=== PATIENT | female | born 1980 | race Caucasian/White ===

== ENCOUNTER 2017-10-05 22:17 | Emergency (ER) | payer OTHER ==
--- NOTE | 2017-10-05 22:39 | ED ---
General Adult HPI - General Chief complaint: Neck Pain/Injury Stated complaint: Flank pain Time Seen by Provider: 10/05/17 22:26 Source: patient, RN notes reviewed Mode of arrival: ambulatory Limitations: no limitations - History of Present Illness Initial comments: This is a 37-year-old female who presents to the emergency department with chief complaint of right flank pain. Patient states that yesterday she developed a fever of 103.6. She states that she presented via EMS to [facility] and was admitted for a urinary tract infection. She states that she left AMA today at around noon because she "doesn't like the hospital." She states that since then she has not developed another fever. She does admit to diarrhea but denies nausea or vomiting. She denies any significant abdominal pain. She complains of right flank pain that radiates to the right abdomen. Patient also complains of neck pain. Patient does state that her pain has improved since yesterday. Patient also complains of discoloration to her bilateral lower extremities, hands and upper arms. - Related Data Home Medications Medication Instructions Recorded Confirmed No Known Home Medications 09/24/15 09/24/15 Allergies Allergy/AdvReac Type Severity Reaction Status Date / Time morphine Allergy Unknown Verified 10/05/17 22:26 Review of Systems ROS Statement: Those systems with pertinent positive or pertinent negative responses have been documented in the HPI. ROS Other: All systems not noted in ROS Statement are negative. Past Medical History Past Medical History: No Reported History History of Any Multi-Drug Resistant Organisms: None Reported Past Surgical History: Section Past Psychological History: Anxiety, Depression, PTSD Smoking Status: Current every day smoker Past Alcohol Use History: Daily, Heavy Past Drug Use History: None Reported General Exam - General Exam Comments Initial Comments: General: Awake and alert, well-developed; in no apparent distress. HEENT: Head atraumatic, normocephalic. Pupils are equal, round and reactive to light. Extraocular movements intact. Oropharynx moist without erythema or exudate. Neck: Supple. Normal ROM. Cardiovascular: Regular rate and rhythm. No murmurs, rubs or gallops. Chest symmetrical. Respiratory: Lungs clear to auscultation bilaterally. No wheezes, rales or rhonchi. Normal respiratory effort with no use of accessory muscles. Abdomen: Soft, non-tender, non-distended. No rigidity, rebound or guarding. Normal bowel sounds in all 4 quadrants. Right CVA tenderness. Musculoskeletal: Normal ROM, no tenderness bilateral upper and lower extremities. Ambulating normally. Skin: [place], warm and dry. Mottled purple discoloration noted to bilateral knees and lateral left upper arm. Neurological: Alert and oriented x3. CN II-XII grossly intact. Speech is fluent and answers are appropriate. No focal neuro deficits. Psychiatric: Normal mood and affect. No overt signs of depression or anxiety noted. Limitations: no limitations Course Vital Signs 10/05/17 10/06/17 22:22 00:32 Temperature 98.6 F 99.0 F Pulse Rate 117 H 90 Respiratory 16 18 Rate Blood Pressure 140/89 120/71 O2 Sat by Pulse 97 98 Oximetry Medical Decision Making - Medical Decision Making This is a 37-year-old female who presents to the emergency department with chief complaint of right-sided flank pain. Patient states that she was admitted for a urinary tract infection and left AMA yesterday. CBC revealed a white count at 18,000 with a left shift. CMP revealed elevated transaminases, however patient does state that she has alcoholic. UA was essentially unremarkable. I tried multiple times to obtain records from [facility] pertaining to patient's stay. Patient did state that she had a computed tomography scan performed but is unable to remember the results. Case was discussed with attending physician, Dr. Schwab. Patient will be admitted with diagnosis of fever for IV antibiotics. Patient is in agreement for admission. Vital signs are stable and she is in no acute distress. - Lab Data Result diagrams: 10/05/17 23:10 10/05/17 23:10 Lab Results 10/05/17 10/05/17 10/05/17 Range/Units 22:45 22:45 23:10 WBC 18.1 H (3.8-10.6) k/uL RBC 3.87 (3.80-5.40) m/uL Hgb 11.1 L (11.4-16.0) gm/dL Hct 34.2 (34.0-46.0) % MCV 88.3 (80.0-100.0) fL MCH 28.6 (25.0-35.0) pg MCHC 32.4 (31.0-37.0) g/dL RDW 13.1 (11.5-15.5) % Plt Count 501 H (150-450) k/uL Neutrophils % 82 % Lymphocytes % 12 % Monocytes % 5 % Eosinophils % 0 % Basophils % 0 % Neutrophils # 14.8 H (1.3-7.7) k/uL Lymphocytes # 2.2 (1.0-4.8) k/uL Monocytes # 0.9 (0-1.0) k/uL Eosinophils # 0.1 (0-0.7) k/uL Basophils # 0.0 (0-0.2) k/uL Sodium (137-145) mmol/L Potassium (3.5-5.1) mmol/L Chloride (98-107) mmol/L Carbon Dioxide (22-30) mmol/L Anion Gap mmol/L BUN (7-17) mg/dL Creatinine (0.52-1.04) mg/dL Est GFR (CKD-EPI)AfAm (>60 ml/min/1.73 sqM) Est GFR (CKD-EPI)NonAf (>60 ml/min/1.73 sqM) Glucose (74-99) mg/dL Calcium (8.4-10.2) mg/dL Total Bilirubin (0.2-1.3) mg/dL AST (14-36) U/L ALT (9-52) U/L Alkaline Phosphatase (38-126) U/L Total Protein (6.3-8.2) g/dL Albumin (3.5-5.0) g/dL Urine Color Yellow Urine Appearance Clear (Clear) Urine pH 5.5 (5.0-8.0) Ur Specific [place] 1.011 (1.001-1.035) Urine Protein Negative (Negative) Urine Glucose (UA) Negative (Negative) Urine Ketones Negative (Negative) Urine Blood Small H (Negative) Urine Nitrite Negative (Negative) Urine Bilirubin Negative (Negative) Urine Urobilinogen <2.0 (<2.0) mg/dL Ur Leukocyte Esterase Trace H (Negative) Urine RBC 4 (0-5) /hpf Urine WBC 6 H (0-5) /hpf Ur Squamous Epith Cells 3 (0-4) /hpf Urine Mucus Rare H (None) /hpf Urine HCG, Qual Not Detected (Not Detectd) 10/05/17 Range/Units 23:10 WBC (3.8-10.6) k/uL RBC (3.80-5.40) m/uL Hgb (11.4-16.0) gm/dL Hct (34.0-46.0) % MCV (80.0-100.0) fL MCH (25.0-35.0) pg MCHC (31.0-37.0) g/dL RDW (11.5-15.5) % Plt Count (150-450) k/uL Neutrophils % % Lymphocytes % % Monocytes % % Eosinophils % % Basophils % % Neutrophils # (1.3-7.7) k/uL Lymphocytes # (1.0-4.8) k/uL Monocytes # (0-1.0) k/uL Eosinophils # (0-0.7) k/uL Basophils # (0-0.2) k/uL Sodium 142 (137-145) mmol/L Potassium 4.2 (3.5-5.1) mmol/L Chloride 105 (98-107) mmol/L Carbon Dioxide 24 (22-30) mmol/L Anion Gap 13 mmol/L BUN 9 (7-17) mg/dL Creatinine 0.70 (0.52-1.04) mg/dL Est GFR (CKD-EPI)AfAm >90 (>60 ml/min/1.73 sqM) Est GFR (CKD-EPI)NonAf >90 (>60 ml/min/1.73 sqM) Glucose 107 H (74-99) mg/dL Calcium 9.2 (8.4-10.2) mg/dL Total Bilirubin 0.3 (0.2-1.3) mg/dL AST 81 H (14-36) U/L ALT 186 H (9-52) U/L Alkaline Phosphatase 102 (38-126) U/L Total Protein 5.8 L (6.3-8.2) g/dL Albumin 3.3 L (3.5-5.0) g/dL Urine Color Urine Appearance (Clear) Urine pH (5.0-8.0) Ur Specific [place] (1.001-1.035) Urine Protein (Negative) Urine Glucose (UA) (Negative) Urine Ketones (Negative) Urine Blood (Negative) Urine Nitrite (Negative) Urine Bilirubin (Negative) Urine Urobilinogen (<2.0) mg/dL Ur Leukocyte Esterase (Negative) Urine RBC (0-5) /hpf Urine WBC (0-5) /hpf Ur Squamous Epith Cells (0-4) /hpf Urine Mucus (None) /hpf Urine HCG, Qual (Not Detectd) Disposition Clinical Impression: Fever, Leukocytosis Disposition: ADMITTED IP TO THIS HOSP Condition: Stable Is patient prescribed a controlled substance at d/c from ED?: No Referrals: Alejandro Bender MD [Primary Care Provider] - 1-2 days Time of Disposition: 02:46
[2017-10-05 23:26] LABS: Appearance,Urine Clear (Clear); Bilirubin,Urine Negative (Negative); Blood,Urine Small (Negative); Color,Urine Yellow; Glucose,Urine (UA) Negative (Negative); Ketones,Urine Negative (Negative); Leukocyte Esterase,Urine Trace (Negative); Mucus,Urine Rare /hpf; Nitrite,Urine Negative (Negative); PH, Urine 5.5 (5.0-8.0); Protein,Urine Negative (Negative); RBC,Urine 4 /hpf (0-5); Specific Gravity,Urine 1.011 (1.001-1.035); Squamous Epithelial Cell,Urine 3 /hpf (0-4); Urobilinogen,Urine <2.0 mg/dL (<2.0); WBC,Urine 6 /hpf (0-5)
[2017-10-05 23:28] LABS: Basophils % (A) 0 %; Eosinophils # (A) 0.1 k/uL (0-0.7); Eosinophils % (A) 0 %; HCT 34.2 % (34.0-46.0); HGB 11.1 gm/dL (11.4-16.0); Lymphocytes # (A) 2.2 k/uL (1.0-4.8); Lymphocytes % (A) 12 %; MCH 28.6 pg (25.0-35.0); MCHC 32.4 g/dL (31.0-37.0); MCV 88.3 fL (80.0-100.0); Mean Platelet Volume 7.2; Monocytes # (A) 0.9 k/uL (0-1.0); Monocytes % (A) 5 %; Neutrophils # (A) 14.8 k/uL (1.3-7.7); Neutrophils % (A) 82 %; Platelet Count 501 k/uL (150-450); RBC 3.87 m/uL (3.80-5.40); RDW 13.1 % (11.5-15.5); WBC 18.1 k/uL (3.8-10.6)
[2017-10-05 23:45] LABS: ALT 186 U/L (9-52); AST 81 U/L (14-36); Albumin 3.3 g/dL (3.5-5.0); Alkaline Phosphatase 102 U/L (38-126); Anion Gap 13 mmol/L; Blood Urea Nitrogen 9 mg/dL (7-17); Calcium 9.2 mg/dL (8.4-10.2); Carbon Dioxide 24 mmol/L (22-30); Chloride 105 mmol/L (98-107); Glucose 107 mg/dL (74-99); Sodium 142 mmol/L (137-145); Total Bilirubin 0.3 mg/dL (0.2-1.3); Total Protein 5.8 g/dL (6.3-8.2)
[2017-10-05 23:47] LABS: Potassium 4.2 mmol/L (3.5-5.1)
[2017-10-06 00:35] VITALS: BP 120/71; PULSE 90; RESP 18; TEMP 99
[2017-10-06] MEDS ORDERED: ONDANSETRON 4 MG/2 ML VIAL IVP PRN (02:47)
[2017-10-06] MEDS ORDERED: IBUPROFEN 400 MG TAB PO PRN (02:47)
[2017-10-06] MEDS ORDERED: KETOROLAC 30 MG/ML 1 ML VIAL IVP PRN (02:47)
[2017-10-06] MEDS ORDERED: SODIUM CHLORIDE 0.9% 1,000 ML IV SCH (03:00)
[2017-10-06] MEDS ORDERED: cefTRIAXone IN SWFI 1,000 MG/10 ML SYRINGE IVP SCH (03:00)
== END 2017-10-06 04:17 | disposition left against medical advice (07) ==
LOC: EC 22:17
DX: D72.829 Elevated white blood cell count, unspecified (principal); M54.2 Cervicalgia; F17.200 Nicotine dependence, unspecified, uncomplicated; Z88.5 Allergy status to narcotic agent
CPT/HCPCS: 99283; 96374; 36415; 80053; 85025; 81001; 81025; J0696

== ENCOUNTER 2018-01-20 23:08 | Emergency (ER) | payer OTHER ==
[2018-01-20 23:15] VITALS: TEMP 98.3
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
[2018-01-21] MEDS ORDERED: NICOTINE 14MG/24HR PATCH TRANSDERM STA (00:26)
[2018-01-21] MEDS ORDERED: LORazepam 1 MG TAB PO STA (00:26)
[2018-01-21 01:07] VITALS: BP 117/64; PULSE 99; RESP 16
[2018-01-21 01:48] LABS: Amphetamine Screen,Urine Detected (NotDetected); Barbiturate Screen,Urine Not Detected (NotDetected); Benzodiazepines Screen,Urine Not Detected (NotDetected); Cocaine Screen,Urine Not Detected (NotDetected); Methadone Screen, Urine Not Detected (NotDetected); Opiate Screen,Urine Not Detected (NotDetected); Oxycodone Screen, Urine Not Detected (NotDetected); Phencyclidine Screen,Urine Not Detected (NotDetected); Tricyclic Antidepressant,Urine Not Detected (NotDetected); Urn Cannabinoid Scrn Not Detected (NotDetected)
== END 2018-01-21 02:04 | disposition home or self-care (01) ==
LOC: EC 23:08
DX: F41.9 Anxiety disorder, unspecified (principal); F17.200 Nicotine dependence, unspecified, uncomplicated; Z79.899 Other long term (current) drug therapy; Z88.5 Allergy status to narcotic agent
CPT/HCPCS: 80306; 99284

== ENCOUNTER 2019-04-05 22:32 | Emergency (ER) | payer OTHER ==
[2019-04-05 22:38] VITALS: TEMP 98.3
[2019-04-05] MEDS ORDERED: MECLIZINE 12.5 MG TAB PO STA (22:57)
[2019-04-05] MEDS ORDERED: ONDANSETRON ODT 4 MG TAB PO STA (22:57)
--- NOTE | 2019-04-05 23:07 | ED ---
Dizziness HPI - General Chief Complaint: Dizziness Stated Complaint: Dizziness Time Seen by Provider: 04/05/19 22:41 Source: patient, RN notes reviewed, old records reviewed Mode of arrival: ambulatory Limitations: no limitations - History of Present Illness Initial Comments: This is a 31-year-old female DF for evaluation patient is safe for evaluation regards to dizziness lightheadedness left arm numbness and tingling left leg numbness and tingling. Patient is concerned that she has MS her dad has MS. Symptoms for 2 weeks now. No aggravating or improving factors. No fevers or trauma. Patient suffers from sciatica symptoms do feel similar to that maybe a little bit increased. No other recent change in medications denying drug or alcohol abuse. Again patient has increased stress and anxiety in her life. MD Complaint: dizziness, lightheadedness -: days(s) Timing: gradual onset Description: sense of movement, lightheadedness History of Same: Yes History of Trauma: Yes Severity: moderate Improves With: rehydration Worsens With: nothing Associated Symptoms: loss of appetite, malaise, syncope, weakness - Related Data Home Medications Medication Instructions Recorded Confirmed Calcium Carb/Magnesium Ox,Carb 1 tab PO DAILY 01/20/18 01/20/18 [Telly-Mag 500-250 MG Chewable] Cyanocobalamin (Vitamin B-12) 1,000 mcg PO DAILY 01/20/18 01/20/18 [Vitamin B-12] Gabapentin [Neurontin] 300 mg PO BID@0630,1200 01/20/18 01/20/18 Gabapentin [Neurontin] 600 mg PO HS 01/20/18 01/20/18 Ibuprofen 800 mg PO TID PRN 01/20/18 01/20/18 Multivitamins, Thera [Multivitamin 1 tab PO DAILY 01/20/18 01/20/18 (formulary)] Phentermine HCl [Adipex P] 30 mg PO DAILY 01/20/18 01/20/18 hydrOXYzine PAMOATE [Vistaril] 50 mg PO Q8H PRN 01/20/18 01/20/18 Allergies Allergy/AdvReac Type Severity Reaction Status Date / Time morphine Allergy Swelling Verified 04/05/19 22:38 Review of Systems ROS Statement: Those systems with pertinent positive or pertinent negative responses have been documented in the HPI. ROS Other: All systems not noted in ROS Statement are negative. Past Medical History Past Medical History: No Reported History History of Any Multi-Drug Resistant Organisms: None Reported Past Surgical History: Section Past Psychological History: Anxiety, Depression, PTSD Smoking Status: Current every day smoker Past Alcohol Use History: Daily, Heavy Past Drug Use History: Methamphetamine General Exam Limitations: no limitations General appearance: alert, in no apparent distress, anxious Head exam: Present: atraumatic, normocephalic, normal inspection Eye exam: Present: normal appearance, PERRL, EOMI. Absent: scleral icterus, conjunctival injection, periorbital swelling ENT exam: Present: normal exam, mucous membranes moist Neck exam: Present: normal inspection. Absent: tenderness, meningismus, lymphadenopathy Respiratory exam: Present: normal lung sounds bilaterally. Absent: respiratory distress, wheezes, rales, rhonchi, stridor Cardiovascular Exam: Present: tachycardia, normal heart sounds. Absent: systolic murmur, diastolic murmur, rubs, gallop, clicks GI/Abdominal exam: Present: soft, normal bowel sounds. Absent: distended, tenderness, guarding, rebound, rigid Extremities exam: Present: normal inspection, full ROM, normal capillary refill. Absent: tenderness, pedal edema, joint swelling, calf tenderness Back exam: Present: normal inspection Neurological exam: Present: alert, oriented X3, CN II-XII intact Psychiatric exam: Present: normal affect, normal mood Skin exam: Present: warm, dry, intact, normal color. Absent: rash Course Vital Signs 04/05/19 22:35 Temperature 98.3 F Pulse Rate 101 H Respiratory 20 Rate Blood Pressure 120/80 O2 Sat by Pulse 100 Oximetry - Reevaluation(s) Reevaluation #1: 04/06/19 00:04 Medical record is reviewed Reevaluation #2: 04/06/19 00:04 Patient symptoms are improved here in the ER for a computed tomography scan to questions are answered EKG Findings - EKG Comments: EKG Findings:: EKG shows sinus tachycardia rate of 103, SC 122,QRS 82 and QTc 432 Medical Decision Making - Medical Decision Making 39 femaleto the ER for evaluation patient presents today for evaluation regarding paresthesia type symptoms numbness tingling of arms left on left leg and anxiety - Lab Data Lab Results 04/05/19 04/05/19 04/05/19 Range/Units 23:25 23:25 23:25 Urine Color Light Yellow Urine Appearance Cloudy H (Clear) Urine pH 6.5 (5.0-8.0) Ur Specific [place] 1.017 (1.001-1.035) Urine Protein Negative (Negative) Urine Glucose (UA) Negative (Negative) Urine Ketones Negative (Negative) Urine Blood Small H (Negative) Urine Nitrite Negative (Negative) Urine Bilirubin Negative (Negative) Urine Urobilinogen <2.0 (<2.0) mg/dL Ur Leukocyte Esterase Negative (Negative) Urine RBC 2 (0-5) /hpf Urine WBC 1 (0-5) /hpf Ur Squamous Epith Cells 9 H (0-4) /hpf Urine Mucus Rare H (None) /hpf Urine HCG, Qual Not Detected (Not Detectd) Urine Opiates Screen Not Detected (NotDetected) Ur Oxycodone Screen Not Detected (NotDetected) Urine Methadone Screen Not Detected (NotDetected) Ur Propoxyphene Screen Not Detected (NotDetected) Ur Barbiturates Screen Not Detected (NotDetected) U Tricyclic Antidepress Not Detected (NotDetected) Ur Phencyclidine Scrn Not Detected (NotDetected) Ur Amphetamines Screen Detected H (NotDetected) U Methamphetamines Scrn Detected H (NotDetected) U Benzodiazepines Scrn Not Detected (NotDetected) Urine Cocaine Screen Not Detected (NotDetected) U Marijuana (THC) Screen Not Detected (NotDetected) - Radiology Data Radiology results: report reviewed (CT brain is negative for acute disease), image reviewed Disposition Clinical Impression: Dizziness, Paresthesia of left arm, Left leg paresthesias Disposition: HOME SELF-CARE Condition: Good Instructions (If sedation given, give patient instructions): Paresthesia (ED), Dizziness (ED) Is patient prescribed a controlled substance at d/c from ED?: No Referrals: Alejandro Bender MD [Primary Care Provider] - 1-2 days
--- NOTE | 2019-04-05 23:18 | CT ---
EXAMINATION TYPE: CT brain wo con DATE OF EXAM: 04/05/2019 COMPARISON: None HISTORY: Patient presents with headache and feeling dizzy. CT DLP: 1084.4 mGycm Automated exposure control for dose reduction was used. Ventricles and sulci appear normal. There is no mass effect nor midline shift. There is no sign of in tracranial hemorrhage. Calvarium is intact. IMPRESSION: Normal unenhanced head CT scan.
[2019-04-05 23:34] LABS: Appearance,Urine Cloudy (Clear); Bilirubin,Urine Negative (Negative); Blood,Urine Small (Negative); Color,Urine Light Yellow; Glucose,Urine (UA) Negative (Negative); Ketones,Urine Negative (Negative); Leukocyte Esterase,Urine Negative (Negative); Mucus,Urine Rare /hpf; Nitrite,Urine Negative (Negative); PH, Urine 6.5 (5.0-8.0); Protein,Urine Negative (Negative); RBC,Urine 2 /hpf (0-5); Specific Gravity,Urine 1.017 (1.001-1.035); Squamous Epithelial Cell,Urine 9 /hpf (0-4); Urobilinogen,Urine <2.0 mg/dL (<2.0); WBC,Urine 1 /hpf (0-5)
[2019-04-06 00:02] LABS: Amphetamine Screen,Urine Detected (NotDetected); Barbiturate Screen,Urine Not Detected (NotDetected); Benzodiazepines Screen,Urine Not Detected (NotDetected); Cocaine Screen,Urine Not Detected (NotDetected); Methadone Screen, Urine Not Detected (NotDetected); Opiate Screen,Urine Not Detected (NotDetected); Oxycodone Screen, Urine Not Detected (NotDetected); Phencyclidine Screen,Urine Not Detected (NotDetected); Tricyclic Antidepressant,Urine Not Detected (NotDetected); Urn Cannabinoid Scrn Not Detected (NotDetected)
[2019-04-06 00:33] VITALS: BP 128/90; PULSE 98; RESP 18
== END 2019-04-06 00:33 | disposition home or self-care (01) ==
LOC: EC 22:32
DX: R42 Dizziness and giddiness (principal); R20.2 Paresthesia of skin; R20.0 Anesthesia of skin; R63.0 Anorexia; R53.81 Other malaise; R55 Syncope and collapse; R53.1 Weakness; F41.9 Anxiety disorder, unspecified; F17.200 Nicotine dependence, unspecified, uncomplicated; Z79.899 Other long term (current) drug therapy; Z88.5 Allergy status to narcotic agent
CPT/HCPCS: 70450; 80306; 81001; 81025; 99285

== ENCOUNTER 2021-03-02 17:57 | Emergency (ER) | payer OTHER ==
[2021-03-02 18:03] VITALS: BP 141/94; PULSE 85; RESP 20; TEMP 97.8
== END 2021-03-02 22:20 | disposition left against medical advice (07) ==
LOC: EC 17:57
DX: Z20.822 Contact with and (suspected) exposure to COVID-19 (principal); Z53.21 Procedure and treatment not carried out due to patient leaving prior to being seen by health care provider
CPT/HCPCS: 87635; 99499

== ENCOUNTER 2023-12-05 01:24 | Emergency (ER) | payer OTHER ==
[2023-12-05 01:27] VITALS: RESP 16
--- NOTE | 2023-12-05 01:53 | ED ---
General Adult HPI - General Source: patient, RN notes reviewed Mode of arrival: ambulatory Limitations: no limitations <Ofelia Escamilla - Last Filed: 12/05/23 04:00> <Henrry Schwab - Last Filed: 12/07/23 22:51> - General Chief complaint: Chest Pain Stated complaint: Chest pain, vomiting, dizziness Time Seen by Provider: 12/05/23 01:40 - History of Present Illness Initial comments: 43-year-old female with no significant past medical history presents emergency department chief complaint of chest pain that began this evening. Patient states that over the past 2 weeks she has been experiencing upper respiratory symptoms including cough, rhinorrhea, congestion. Patient states that this evening she began to experience lower chest pain that is exacerbated with coughing and inspiration. Additionally, patient states that she had an episode of emesis. She denies fevers, chills, hematemesis. Denies previous surgical abdominal history. (Ofelia Escamilla) 43 female with chest pain and dizziness (Henrry Schwab) - Related Data Home Medications Medication Instructions Recorded Confirmed Calcium Carb/Magnesium Ox,Carb 1 tab PO DAILY 01/20/18 01/20/18 [Telly-Mag 500-250 MG Chewable] Cyanocobalamin (Vitamin B-12) 1,000 mcg PO DAILY 01/20/18 01/20/18 [Vitamin B-12] Gabapentin [Neurontin] 300 mg PO BID@0630,1200 01/20/18 01/20/18 Gabapentin [Neurontin] 600 mg PO HS 01/20/18 01/20/18 Ibuprofen 800 mg PO TID PRN 01/20/18 01/20/18 Multivitamins, Thera [Multivitamin 1 tab PO DAILY 01/20/18 01/20/18 (formulary)] Phentermine HCl [Adipex P] 30 mg PO DAILY 01/20/18 01/20/18 hydrOXYzine pamoate [Vistaril] 50 mg PO Q8H PRN 01/20/18 01/20/18 Previous Rx's Medication Instructions Recorded Azithromycin [Zithromax] 500 mg PO DAILY #5 tab 12/05/23 Allergies Allergy/AdvReac Type Severity Reaction Status Date / Time morphine Allergy Swelling Verified 12/05/23 01:27 Review of Systems ROS Other: All systems not noted in ROS Statement are negative. <Ofelia Escamilla - Last Filed: 12/05/23 04:00> ROS Other: All systems not noted in ROS Statement are negative. <Henrry Schwab - Last Filed: 12/07/23 22:51> ROS Statement: Those systems with pertinent positive or pertinent negative responses have been documented in the HPI. Past Medical History Past Medical History: No Reported History History of Any Multi-Drug Resistant Organisms: None Reported Past Surgical History: Section Past Psychological History: Anxiety, Depression, PTSD Smoking Status: Never smoker Past Alcohol Use History: Daily, Heavy Past Drug Use History: Methamphetamine <Ofelia Escamilla - Last Filed: 12/05/23 04:00> General Exam Limitations: no limitations General appearance: alert, in no apparent distress Head exam: Present: atraumatic, normocephalic, normal inspection Eye exam: Present: normal appearance, PERRL, EOMI. Absent: scleral icterus, conjunctival injection, periorbital swelling ENT exam: Present: normal exam, mucous membranes moist Neck exam: Present: normal inspection. Absent: tenderness, meningismus, lymphadenopathy Respiratory exam: Present: normal lung sounds bilaterally, chest wall tenderness (inferior anterior tenderness to palpation). Absent: respiratory distress, wheezes, rales, rhonchi, stridor Cardiovascular Exam: Present: regular rate, normal rhythm, normal heart sounds. Absent: systolic murmur, diastolic murmur, rubs, gallop, clicks GI/Abdominal exam: Present: soft, tenderness (epigastric). Absent: distended Extremities exam: Present: normal inspection, full ROM, normal capillary refill. Absent: tenderness, pedal edema, joint swelling, calf tenderness Back exam: Present: normal inspection Skin exam: Present: warm, dry, intact, normal color. Absent: rash <RobbiebaldomeroOfelia hough - Last Filed: 12/05/23 04:00> General appearance: alert, in no apparent distress Head exam: Present: atraumatic, normocephalic, normal inspection Eye exam: Present: normal appearance, PERRL, EOMI. Absent: scleral icterus, conjunctival injection, periorbital swelling ENT exam: Present: normal exam, mucous membranes moist Neck exam: Present: normal inspection. Absent: tenderness, meningismus, lymphadenopathy Respiratory exam: Present: normal lung sounds bilaterally. Absent: respiratory distress, wheezes, rales, rhonchi, stridor Cardiovascular Exam: Present: regular rate, normal rhythm, normal heart sounds. Absent: systolic murmur, diastolic murmur, rubs, gallop, clicks GI/Abdominal exam: Present: soft, normal bowel sounds. Absent: distended, tend erness, guarding, rebound, rigid Extremities exam: Present: normal inspection, full ROM, normal capillary refill. Absent: tenderness, pedal edema, joint swelling, calf tenderness Back exam: Present: normal inspection Neurological exam: Present: alert, oriented X3, CN II-XII intact Psychiatric exam: Present: normal affect, normal mood Skin exam: Present: warm, dry, intact, normal color. Absent: rash <Henrry Schwab - Last Filed: 12/07/23 22:51> Course <Henrry Schwab - Last Filed: 12/07/23 22:51> Vital Signs 12/05/23 12/05/23 01:25 07:04 Temperature 98.3 F 97.8 F Pulse Rate 71 68 Respiratory 16 16 Rate Blood Pressure 144/81 128/78 O2 Sat by Pulse 97 98 Oximetry - Reevaluation(s) Reevaluation #1: Records reviewed (Henrry Schwab) Reevaluation #2: Patient is informed of results and questions answered (Henrry Schwab) Reevaluation #3: Chest pain is resolved (Henrry Schwab) Medical Decision Making - Lab Data Result diagrams: 12/05/23 03:21 12/05/23 03:21 <Ofelia Escamilla - Last Filed: 12/05/23 04:00> - Lab Data Result diagrams: 12/05/23 03:21 12/05/23 03:21 - Radiology Data Radiology results: report reviewed (Chest x-ray is negative for acute disease), image reviewed <Henrry cShwab - Last Filed: 12/07/23 22:51> - Medical Decision Making Was pt. sent in by a medical professional or institution (, PA, PRESS FEEDER, urgent care, hospital, or senior living...) When possible be specific @ -[No] Did you speak to anyone other than the patient for history (EMS, parent, family, police, friend...)? What history was obtained from this source @ -[No] Did you review nursing and triage notes (agree or disagree)? Why? @ -[I reviewed and agree with nursing and triage notes] Were old charts reviewed (outside hosp., previous admission, EMS record, old EK G, old radiological studies, urgent care reports/EKG's, senior living records)? Report findings @ -[No old charts were reviewed] Differential Diagnosis (chest pain, altered mental status, abdominal pain women, abdominal pain men, vaginal bleeding, weakness, fever, dyspnea, syncope, headache, dizziness, GI bleed, back pain, seizure, CVA, palpatations, mental health, musculoskeletal)? @ -Differential Chest Pain: Stable Angina, Unstable Angina, STEMI, NSTEMI Aortic Dissection, Pneumothorax, Musculoskeletal, Esophageal Spasm GERD, Cholecystitis, Pancreatitis, Zoster, this is not meant to be an all-inclusive list. EKG interpreted by me (3pts min.). @ -[As above] X-rays interpreted by me (1pt min.). @ -X-ray no acute cardiopulmonary process or disease CT interpreted by me (1pt min.). @ -[None done] U/S interpreted by me (1pt. min.). @ -[None done] What testing was considered but not performed or refused? (CT, X-rays, U/S, labs)? Why? @ -[None] What meds were considered but not given or refused? Why? @ -[None] Did you discuss the management of the patient with other professionals (maria esther durant i.eSaul Valdez, PA, PRESS FEEDER, lab, RT, psych nurse, social media director, barkeep, teacher, protective officer, supportive employment case manager)? Give summary @ -[No] Was smoking cessation discussed for >3mins.? @ -[No] Was critical care preformed (if so, how long)? @ -[No] Were there social determinants of health that impacted care today? How? (Homelessness, low income, unemployed, alcoholism, drug addiction, transportation, low edu. Level, literacy, decrease access to med. care, usp, rehab)? @ -[No] Was there de-escalation of care discussed even if they declined (Discuss DNR or withdrawal of care, Hospice)? DNR status @ -[No] What co-morbidities impacted this encounter? (DM, HTN, Smoking, COPD, CAD, Cancer, CVA, ARF, Chemo, Hep., AIDS, mental health diagnosis, sleep apnea, morbid obesity)? @ -[None] Was patient admitted / discharged? Hospital course, mention meds given and route, prescriptions, significant lab abnormalities, going to OR and other pertinent info. @ -43-year-old female with chest pain. Patient's vitals are stable upon arrival and she is in no signs of acute distress. On examination patient's anterior chest wall pain is exacerbated with palpation and inspiration. Additionally, patient has mild epigastric tenderness to palpation states that this pain radiates into her back. No acute findings on cardiopulmonary examination. Patient is provided with IV fluids and antiemetics pending results of chest x- ray, labs, she is agreeable with this plan. Chest x-ray no acute cardiopulmonary process or disease. Patient is signed out to my attending, Dr. Schwab, pending laboratory results and disposition. Undiagnosed new problem with uncertain prognosis? @ -[No] Drug Therapy requiring intensive monitoring for toxicity (Heparin, Nitro, Insulin, Cardizem)? @ -[No] Were any procedures done? @ -[No] Diagnosis/symptom? @ -[default] Acute, or Chronic, or Acute on Chronic? @ -[default] Uncomplicated (without systemic symptoms) or Complicated (systemic symptoms)? @ -[default] Side effects of treatment? @ -[No] Exacerbation, Progression, or Severe Exacerbation? @ -[No] Poses a threat to life or bodily function? How? (Chest pain, [place], [place], pneumonia, PE, COPD, DKA, ARF, appy, cholecystitis, CVA, Diverticulitis, Homicidal, Suicidal, threat to staff... and all critical care pts) @ -[No] (Stibaldomeror,Ofelia) 43 Female to ER for evaluation of nonspecific symptoms including chest pain. Patient has no findings here in the ER symptoms are improved patient can be discharged home (Henrry Schwab) - Lab Data Lab Results 12/05/23 12/05/23 12/05/23 Range/Units 03:21 03:21 03:21 WBC 12.8 H (3.8-10.6) k/uL RBC 4.23 (3.80-5.40) m/uL Hgb 12.3 (11.4-16.0) gm/dL Hct 36.5 (34.0-46.0) % MCV 86.2 (80.0-100.0) fL MCH 29.1 (25.0-35.0) pg MCHC 33.8 (31.0-37.0) g/dL RDW 14.0 (11.5-15.5) % Plt Count 383 (150-450) k/uL MPV 8.9 Neutrophils % 79 % Lymphocytes % 13 % Monocytes % 5 % Eosinophils % 2 % Basophils % 1 % Neutrophils # 10.1 H (1.3-7.7) k/uL Lymphocytes # 1.7 (1.0-4.8) k/uL Monocytes # 0.6 (0-1.0) k/uL Eosinophils # 0.3 (0-0.7) k/uL Basophils # 0.1 (0-0.2) k/uL Sodium 138 (137-145) mmol/L Potassium 4.4 (3.5-5.1) mmol/L Chloride 106 (98-107) mmol/L Carbon Dioxide 27 (22-30) mmol/L Anion Gap 5 mmol/L BUN 17 (7-17) mg/dL Creatinine 0.88 (0.52-1.04) mg/dL Est GFR (CKD-EPI)AfAm >90 (>60 ml/min/1.73 sqM) Est GFR (CKD-EPI)NonAf 82 (>60 ml/min/1.73 sqM) Glucose 112 H (74-99) mg/dL Calcium 9.5 (8.4-10.2) mg/dL Magnesium 1.8 (1.6-2.3) mg/dL Total Bilirubin 0.5 (0.2-1.3) mg/dL AST 162 H (14-36) U/L ALT 92 H (4-34) U/L Alkaline Phosphatase 65 (38-126) U/L Troponin I <0.012 (0.000-0.034) ng/mL Total Protein 6.2 L (6.3-8.2) g/dL Albumin 3.7 (3.5-5.0) g/dL Amylase 39 (30-110) U/L Lipase 58 (23-300) U/L Influenza Type A (PCR) (Not Detectd) Influenza Type B (PCR) (Not Detectd) RSV (PCR) (Not Detectd) SARS-CoV-2 (PCR) (Not Detectd) 12/05/23 Range/Units 03:21 WBC (3.8-10.6) k/uL RBC (3.80-5.40) m/uL Hgb (11.4-16.0) gm/dL Hct (34.0-46.0) % MCV (80.0-100.0) fL MCH (25.0-35.0) pg MCHC (31.0-37.0) g/dL RDW (11.5-15.5) % Plt Count (150-450) k/uL MPV Neutrophils % % Lymphocytes % % Monocytes % % Eosinophils % % Basophils % % Neutrophils # (1.3-7.7) k/uL Lymphocytes # (1.0-4.8) k/uL Monocytes # (0-1.0) k/uL Eosinophils # (0-0.7) k/uL Basophils # (0-0.2) k/uL Sodium (137-145) mmol/L Potassium (3.5-5.1) mmol/L Chloride (98-107) mmol/L Carbon Dioxide (22-30) mmol/L Anion Gap mmol/L BUN (7-17) mg/dL Creatinine (0.52-1.04) mg/dL Est GFR (CKD-EPI)AfAm (>60 ml/min/1.73 sqM) Est GFR (CKD-EPI)NonAf (>60 ml/min/1.73 sqM) Glucose (74-99) mg/dL Calcium (8.4-10.2) mg/dL Magnesium (1.6-2.3) mg/dL Total Bilirubin (0.2-1.3) mg/dL AST (14-36) U/L ALT (4-34) U/L Alkaline Phosphatase (38-126) U/L Troponin I (0.000-0.034) ng/mL Total Protein (6.3-8.2) g/dL Albumin (3.5-5.0) g/dL Amylase (30-110) U/L Lipase (23-300) U/L Influenza Type A (PCR) Not Detected (Not Detectd) Influenza Type B (PCR) Not Detected (Not Detectd) RSV (PCR) Not Detected (Not Detectd) SARS-CoV-2 (PCR) Not Detected (Not Detectd) Disposition <Ofelia Escamilla - Last Filed: 12/05/23 04:00> Is patient prescribed a controlled substance at d/c from ED?: No Time of Disposition: 04:48 <Henrry Schwab - Last Filed: 12/07/23 22:51> Clinical Impression: Atypical chest pain Disposition: HOME SELF-CARE Condition: Good Instructions (If sedation given, give patient instructions): Costochondritis (ED) Prescriptions: Azithromycin [Zithromax] 500 mg PO DAILY #5 tab Referrals: Alejandro Bender MD [REFERRING] - 1-2 days
--- NOTE | 2023-12-05 02:55 | XR ---
EXAM: XR Chest, 2 Views CLINICAL HISTORY: ITS.REASON XR Reason: cough, congestion TECHNIQUE: Frontal and lateral views of the chest. COMPARISON: No relevant prior studies available. FINDINGS: Lungs: Unremarkable. No consolidation. Pleural space: Unremarkable. No pneumothorax. Heart: Unremarkable. No cardiomegaly. Mediastinum: Unremarkable. Normal mediastinal contour. Bones/joints: Unremarkable. No acute fracture. IMPRESSION: No consolidation.
[2023-12-05] MEDS: SODIUM CHLORIDE 0.9% 500 ML 500 ML IV STA (03:22)
[2023-12-05] MEDS: ONDANSETRON 4 MG/2 ML VIAL IVP STA (03:41)
[2023-12-05 03:43] LABS: Basophils # (A) 0.1 k/uL (0-0.2); Basophils % (A) 1 %; Eosinophils # (A) 0.3 k/uL (0-0.7); Eosinophils % (A) 2 %; HCT 36.5 % (34.0-46.0); HGB 12.3 gm/dL (11.4-16.0); Lymphocytes # (A) 1.7 k/uL (1.0-4.8); Lymphocytes % (A) 13 %; MCH 29.1 pg (25.0-35.0); MCHC 33.8 g/dL (31.0-37.0); MCV 86.2 fL (80.0-100.0); Mean Platelet Volume 8.9; Monocytes # (A) 0.6 k/uL (0-1.0); Monocytes % (A) 5 %; Neutrophils # (A) 10.1 k/uL (1.3-7.7); Neutrophils % (A) 79 %; Platelet Count 383 k/uL (150-450); RBC 4.23 m/uL (3.80-5.40); WBC 12.8 k/uL (3.8-10.6)
[2023-12-05 03:55] LABS: ALT 92 U/L (4-34); AST 162 U/L (14-36); African American GFR (CKD) >90 (>60 ml/min/1.73 sqM); Albumin 3.7 g/dL (3.5-5.0); Alkaline Phosphatase 65 U/L (38-126); Amylase 39 U/L (30-110); Anion Gap 5 mmol/L; Blood Urea Nitrogen 17 mg/dL (7-17); Calcium 9.5 mg/dL (8.4-10.2); Carbon Dioxide 27 mmol/L (22-30); Chloride 106 mmol/L (98-107); Glucose 112 mg/dL (74-99); Lipase 58 U/L (23-300); Magnesium 1.8 mg/dL (1.6-2.3); Non-African American GFR(CKD) 82 (>60 ml/min/1.73 sqM); Potassium 4.4 mmol/L (3.5-5.1); Sodium 138 mmol/L (137-145); Total Bilirubin 0.5 mg/dL (0.2-1.3); Total Protein 6.2 g/dL (6.3-8.2)
[2023-12-05] MEDS: AZITHROMYCIN 500 MG in SODIUM CHLORIDE 0.9% 250 ML IVPB STA (05:33)
[2023-12-05] MEDS: IBUPROFEN 600 MG STARTER PACK 4 TAB BTL PO STA (05:36)
[2023-12-05] MEDS: diphenhydrAMINE 50 MG/ML 1 ML VIAL IVP STA (05:45)
[2023-12-05] MEDS: METOCLOPRAMIDE 5 MG/ML 2 ML VIAL IVP STA (05:46)
[2023-12-05 07:06] VITALS: BP 128/78; PULSE 68; TEMP 97.8
== END 2023-12-05 07:06 | disposition home or self-care (01) ==
LOC: EC 01:24
CPT/HCPCS: 36415; 71046; 80053; 82150; 83690; 83735; 84484; 85025; 87636; 96361; 96365; 96366; 96375; 99285

== ENCOUNTER 2024-06-25 01:48 | Inpatient (IN) | payer OTHER ==
[2024-06-25] MEDS: ONDANSETRON 4 MG/2 ML VIAL IVP STA ×2 (02:16→02:52)
[2024-06-25 02:47] LABS: Basophils # (A) 0.1 k/uL (0-0.2); Basophils % (A) 0 %; Eosinophils # (A) 0.2 k/uL (0-0.7); Eosinophils % (A) 2 %; HCT 43.4 % (34.0-46.0); HGB 14.2 gm/dL (11.4-16.0); Lymphocytes # (A) 3.3 k/uL (1.0-4.8); Lymphocytes % (A) 30 %; MCH 28.2 pg (25.0-35.0); MCHC 32.7 g/dL (31.0-37.0); MCV 86.3 fL (80.0-100.0); Mean Platelet Volume 8.8; Monocytes # (A) 0.4 k/uL (0-1.0); Monocytes % (A) 4 %; Neutrophils % (A) 63 %; Platelet Count 445 k/uL (150-450); RBC 5.02 m/uL (3.80-5.40); RDW 13.5 % (11.5-15.5); WBC 11.2 k/uL (3.8-10.6)
[2024-06-25] MEDS: KETOROLAC 15 MG/ML 1 ML VIAL IVP STA (02:52)
[2024-06-25 03:03] LABS: INR 0.9 (<1.2); Partial Thromboplastin Time 22.6 sec (22.0-30.0); Prothrombin Time 10.3 sec (10.0-12.5)
[2024-06-25 03:11] LABS: ALT 27 U/L (4-34); AST 48 U/L (14-36); African American GFR (CKD) >90 (>60 ml/min/1.73 sqM); Albumin 4.5 g/dL (3.5-5.0); Alkaline Phosphatase 51 U/L (38-126); Amylase 44 U/L (30-110); Anion Gap 9 mmol/L; Blood Urea Nitrogen 13 mg/dL (7-17); Calcium 10.2 mg/dL (8.4-10.2); Carbon Dioxide 26 mmol/L (22-30); Chloride 101 mmol/L (98-107); Glucose 125 mg/dL (74-99); Lipase 95 U/L (23-300); Magnesium 1.8 mg/dL (1.6-2.3); Non-African American GFR(CKD) 82 (>60 ml/min/1.73 sqM); Potassium 4.3 mmol/L (3.5-5.1); Sodium 136 mmol/L (137-145); Total Bilirubin 0.8 mg/dL (0.2-1.3); Total Protein 7.3 g/dL (6.3-8.2)
--- NOTE | 2024-06-25 03:29 | CT ---
EXAM: CT Abdomen and Pelvis Without Intravenous Contrast CLINICAL HISTORY: ITS.REASON CT Reason: epigastric abdominal pain TECHNIQUE: Axial computed tomography images of the abdomen and pelvis without intravenous contrast. CTDI is 9.5 mGy and DLP is 534.6 mGy-cm. This CT exam was performed using one or more of the following dose reduction techniques: automated exposure control, adjustment of the mA and/or kV according to patient size, and/or use of iterative reconstruction technique. COMPARISON: No relevant prior studies available. FINDINGS: Lung bases: Unremarkable. No mass. No consolidation. ABDOMEN: Liver: Unremarkable. Gallbladder and bile ducts: Wall thickening of the gallbladder with small gallstone. Correlate for acute cholecystitis. No ductal dilation. Pancreas: Unremarkable. No ductal dilation. Spleen: Unremarkable. No splenomegaly. Adrenals: Unremarkable. No mass. Kidneys and ureters: Unremarkable. No hydronephrosis, nephrolithiasis, or obstructive uropathy. Stomach and bowel: Unremarkable. No obstruction. No mucosal thickening. PELVIS: Appendix: No findings to suggest acute appendicitis. Bladder: Unremarkable. No stones. Reproductive: Unremarkable as visualized. ABDOMEN and PELVIS: Intraperitoneal space: Unremarkable. No free air. No significant fluid collection. Bones/joints: No acute fracture. No dislocation. Soft tissues: Unremarkable. Vasculature: Unremarkable. No abdominal aortic aneurysm. Lymph nodes: Unremarkable. No enlarged lymph nodes. IMPRESSION: 1. No hydronephrosis, nephrolithiasis, or obstructive uropathy. 2. Wall thickening of the gallbladder with small gallstone. Correlate for acute cholecystitis.
--- NOTE | 2024-06-25 06:03 | ED ---
Chest Pain HPI - General Chief Complaint: Chest Pain Stated Complaint: Vomiting Time Seen by Provider: 06/25/24 02:02 Source: patient Mode of arrival: ambulatory Limitations: no limitations - History of Present Illness Initial Comments: This patient is 44-year-old woman who presents to have evaluation of chest pain that she describes as being a bandlike tightness at the costal margin. She states that it had started while she was at rest, she had been trying to sleep. She states that it is severe intensity. She has not noted worsening or relieving factors. She also has associated nausea and vomiting. MD Complaint: chest pain -: hour(s) Onset: awoke with symptoms Pain Location: left chest, right chest, epigastric Pain Radiation: back Severity: severe Quality: tightness, aching Consistency: constant Improves With: nothing Worsens With: nothing Anginal Symptoms: nausea, vomiting Treatments Prior to Arrival: none - Related Data Home Medications Medication Instructions Recorded Confirmed Semaglutide Compounded 0.75 mg PO TH@2100 06/25/24 06/25/24 Previous Rx's Medication Instructions Recorded Ondansetron Odt [Zofran Odt] 4 mg PO Q8HR PRN #9 tab 06/25/24 Simethicone 40 mg/0.6 ml Drops 40 mg PO PCHS PRN #30 ml 06/25/24 [Mylicon Drops] Allergies Allergy/AdvReac Type Severity Reaction Status Date / Time morphine Allergy Swelling Verified 06/25/24 07:19 Review of Systems ROS Statement: Those systems with pertinent positive or pertinent negative responses have been documented in the HPI. ROS Other: All systems not noted in ROS Statement are negative. Constitutional: Denies: fever, chills Respiratory: Denies: cough, dyspnea, wheezes Cardiovascular: Reports: chest pain. Denies: palpitations, orthopnea, edema, syncope Gastrointestinal: Reports: nausea, vomiting. Denies: diarrhea, hematemesis, melena, hematochezia Genitourinary: Denies: dysuria, hematuria Musculoskeletal: Denies: back pain Skin: Denies: rash Neurological: Denies: headache, weakness, numbness EKG Findings - EKG Results: EKG: WNL, sinus rhythm (Rate 77 bpm), normal axis, normal QRS, normal ST/T - NM, Pacemaker, Normal: Normal tracing: normal tracing Past Medical History Past Medical History: No Reported History History of Any Multi-Drug Resistant Organisms: None Reported Past Surgical History: Section Past Psychological History: Anxiety, Depression, PTSD Smoking Status: Never smoker Past Alcohol Use History: Daily, Heavy Past Drug Use History: Methamphetamine - Past Family History Mother Family Medical History: Hypertension, Thyroid Disorder Additional Family Medical History / Comment(s): fibromyalgia Father Additional Family Medical History / Comment(s): from [place] 2023 at age 67. General Exam Limitations: no limitations General appearance: alert, in no apparent distress Head exam: Present: atraumatic, normocephalic Eye exam: Present: normal appearance. Absent: scleral icterus, conjunctival injection ENT exam: Present: normal oropharynx Neck exam: Present: normal inspection Respiratory exam: Present: normal lung sounds bilaterally. Absent: respiratory distress, wheezes, rales, rhonchi, stridor, accessory muscle use Cardiovascular Exam: Present: regular rate, normal rhythm, normal heart sounds. Absent: systolic murmur, diastolic murmur, rubs, gallop GI/Abdominal exam: Present: soft, tenderness, guarding. Absent: distended, rebound, rigid, mass, pulsatile mass, hernia Extremities exam: Present: normal inspection, normal capillary refill. Absent: pedal edema, calf tenderness Back exam: Present: normal inspection. Absent: CVA tenderness (R), CVA tenderness (L) Neurological exam: Present: alert Skin exam: Present: warm, dry, intact, normal color. Absent: rash Course Vital Signs 06/25/24 06/25/24 06/25/24 01:59 02:57 04:01 Temperature 97.9 F Pulse Rate 91 80 72 Pulse Rate [ Pulse Oximetery ] Respiratory 18 18 16 Rate Blood Pressure 144/79 130/78 Blood Pressure [Right Arm] O2 Sat by Pulse 100 97 Oximetry 06/25/24 06/25/24 06/25/24 05:52 08:00 08:09 Temperature 97.7 F 98.0 F Pulse Rate 97 77 Pulse Rate [ 68 Pulse Oximetery ] Respiratory 16 16 20 Rate Blood Pressure 107/71 92/53 Blood Pressure 114/73 [Right Arm] O2 Sat by Pulse 98 98 Oximetry Chest Pain MDM - MDM The patient had CT scan of the abdomen that I interpreted as showing distended gallbladder and gallstone. No definite pericholecystic fluid no obstruction or free air. Was pt. sent in by a medical professional or institution (, VON, ARCHEOLOGY PROFESSOR, urgent care, hospital, or fdc...) When possible be specific @ -[No] Did you speak to anyone other than the patient for history (EMS, parent, family, police, friend...)? What history was obtained from this source @ -[No] Did you review nursing and triage notes (agree or disagree)? Why? @ -[I reviewed and agree with nursing and triage notes] Were old charts reviewed (outside hosp., previous admission, EMS record, old EKG, old radiological studies, urgent care reports/EKG's, fdc records)? Report findings @ -[No old charts were reviewed] Differential Diagnosis (chest pain, altered mental status, abdominal pain women, abdominal pain men, vaginal bleeding, weakness, fever, dyspnea, syncope, headache, dizziness, GI bleed, back pain, seizure, CVA, palpatations, mental health, musculoskeletal)? @ -[Differential Abdominal Pain Women: Appendicitis, Cholecystitis, diverticulosis, ischemic bowel, pancreatitis, hepatitis, UTI, gastroenteritis, AAA, incarcerated hernia, bowel obstruction, constipation, inflammatory bowel, hepatitis, peptic ulcer disease, splenic infarction, perforated viscus, vulvitis, ovarian torsion, PID, kidney stone, placenta abruption, this is not meant to be an all-inclusive list EKG interpreted by me (3pts min.). @ -[As above] X-rays interpreted by me (1pt min.). @ -[None done] CT interpreted by me (1pt min.). @ -[I interpreted as above U/S interpreted by me (1pt. min.). @ -[None done] What testing was considered but not performed or refused? (CT, X-rays, U/S, labs)? Why? @ -[None] What meds were considered but not given or refused? Why? @ -[None] Did you discuss the management of the patient with other professionals (professionals i.e. VON Valdez, ARCHEOLOGY PROFESSOR, lab, RT, psych nurse, social professionals, disability specialist, teacher, corporation officer, rehabilitation caseworker)? Give summary @ -[Case discussed with surgeon on-call, Dr. Espinosa who will admit for possible surgical intervention Was smoking cessation discussed for >3mins.? @ -[No] Was critical care preformed (if so, how long)? @ -[No] Were there social determinants of health that impacted care today? How? (Homelessness, low income, unemployed, alcoholism, drug addiction, transportation, low edu. Level, literacy, decrease access to med. care, shelter, rehab)? @ -[No] Was there de-escalation of care discussed even if they declined (Discuss DNR or withdrawal of care, Hospice)? DNR status @ -[No] What co-morbidities impacted this encounter? (DM, HTN, Smoking, COPD, CAD, C ancer, CVA, ARF, Chemo, Hep., AIDS, mental health diagnosis, sleep apnea, morbid obesity)? @ -[None] Was patient admitted / discharged? Hospital course, mention meds given and route, prescriptions, significant lab abnormalities, going to OR and other pertinent info. @ -[Patient is a 44-year-old woman here with abdominal pain and on exam the patient having marked right upper quadrant tenderness. She is sent for CT scan that does show distended gallbladder with stone. At this time patient admitted for symptomatic cholelithiasis with possible early cholecystitis. Undiagnosed new problem with uncertain prognosis? @ -[No] Drug Therapy requiring intensive monitoring for toxicity (Heparin, Nitro, Insulin, Cardizem)? @ -[No] Were any procedures done? @ -[No] Diagnosis/symptom? @ -[Acute abdominal pain Symptomatic cholelithiasis versus early cholecystitis Acute, or Chronic, or Acute on Chronic? @ -[Acute Uncomplicated (without systemic symptoms) or Complicated (systemic symptoms)? @ -[Uncomplicated Side effects of treatment? @ -[No] Exacerbation, Progression, or Severe Exacerbation? @ -[No] Poses a threat to life or bodily function? How? (Chest pain, [place], [place], pneumonia, PE, COPD, DKA, ARF, appy, cholecystitis, CVA, Diverticulitis, Homicidal, Suicidal, threat to staff... and all critical care pts) @ -[No] All treatments are based on ideal body weight as in ED triage Disposition Clinical Impression: Chest pain Disposition: ADMITTED IP TO THIS HOSP Condition: Stable
[2024-06-25] MEDS ORDERED: NALOXONE 0.4 MG/ML 1 ML VIAL IV PRN (06:12)
[2024-06-25] MEDS ORDERED: KETOROLAC 15 MG/ML 1 ML VIAL IVP PRN (06:12)
[2024-06-25] MEDS ORDERED: ONDANSETRON 4 MG/2 ML VIAL IVP PRN (06:12)
[2024-06-25] MEDS: SODIUM CHLORIDE 0.9% 1,000 ML IV SCH (06:25)
[2024-06-25] MEDS: PANTOPRAZOLE 40 MG/10 ML VIAL IV SCH (09:23)
--- NOTE | 2024-06-25 09:27 | P.GSHP ---
History of Present Illness H&P Date: 06/25/24 CHIEF COMPLAINT: Cholecystitis HISTORY OF PRESENT ILLNESS: The patient is a 44-year-old female who presents with acute onsets epigastric right upper quadrant abdominal pain that started last night. Patient reports eating yogurt including a burger and Turkish fries. She had similar episode 6 months ago of exact nature aching and cramping however was diagnosed with pneumonia. She had diagnostic studies today demonstrating cholecystitis. Patient reports that admission and she is feeling better. She is concerned about the financial cost that she does not have insurance at this time. PAST MEDICAL HISTORY: Please see list PAST SURGICAL HISTORY: Please see list MEDICATIONS: Please see list ALLERGIES: Please see list SOCIAL HISTORY: Please see list FAMILY HISTORY: Please see list REVIEW OF ORGAN SYSTEMS: CONSTITUTIONAL: No reports of fevers or chills. HEENT: Denies any troubles with the vision or hearing. ENDOCRINE: No reports of hypothyroidism. No diabetes. RESPIRATORY: No recent pneumonias. CARDIOVASCULAR: Denies chest pain or palpitations GI: No blood in stools or constipation. MUSCULOSKELETAL: Has occasional joint pain including back pain. NEURO: No seizure disorders or headaches. No recent stroke. PSYCH: No depression or suicidal ideation. GENITOURINARY: No active blood in urine. No urinary hesitancy. HEMATOLOGIC: No personal or family history of DVTs or pulmonary emboli. SKIN: No skin cancer. PHYSICAL EXAM: VITAL SIGNS: Afebrile vital signs stable GENERAL: Well-developed pleasant in no acute distress. HEENT: No scleral icterus. Extraocular movements grossly intact. Moist buccal mucosa. NECK: Supple without lymphadenopathy. CHEST: Unlabored respirations. Equal bilateral excursions. CARDIOVASCULAR: Regular rate regular rhythm rhythm. Distal 2+ pulses. ABDOMEN: Soft, nondistended. Tender along the epigastrium and right upper quadrant. MUSCULOSKELETAL: No clubbing, cyanosis, or edema. NEURO: Cranial nerves II to XII within normal limits. No focal or lateralizing signs. PSYCH: Alert and oriented to person, place and time. SKIN: Well-perfused good skin turgor. EKG: Normal sinus rhythm LABS: WBC elevated 11,000. LFTs within normal limits. STUDIES: CT of the abdomen pelvis independently reviewed demonstrates singular gallstone identified along the dependent portion noted. This is my independent interpretation. REPORTS: CT report demonstrates cholecystitis. ASSESSMENT: 1. Epigastric and right upper quadrant abdominal pain due to cholecystitis 2. Acute cholecystitis due to symptomatic gallstones PLAN: 1. Patient given options of surgical invention versus nonoperative management as she reports her pain has improved. She is opted for nonoperative management at this time. 2. Financial services asked to see patient due to lack of insurance. Patient sees her primary care provider Dr. Dukes however since she has been without insurance for a year she would like to reconsider. 3. Surgery canceled per patient request. Antibiotics for cholecystitis described with low-fat diet. 4. Anticipated discharge after tolerating diet Past Medical History Past Medical History: No Reported History History of Any Multi-Drug Resistant Organisms: None Reported Past Surgical History: Section Additional Past Surgical History / Comment(s): 3x c-sections, laprascopic cyst removal from ovaries Additional Past Anesthesia/Blood Transfusion Reaction / Comment(s): na Past Psychological History: Anxiety, Depression, PTSD Smoking Status: Former smoker, Vaper Past Alcohol Use History: Daily, Heavy Additional Past Alcohol Use History / Comment(s): 2020 was last al cohol intake. Past Drug Use History: Methamphetamine Additional Drug Use History / Comment(s): december 02, 2020 was last meth use. - Past Family History Mother Family Medical History: Hypertension, Thyroid Disorder Additional Family Medical History / Comment(s): fibromyalgia Father Additional Family Medical History / Comment(s): from [place] 2023 at age 67. Medications and Allergies Home Medications Medication Instructions Recorded Confirmed Type Semaglutide Compounded 1 mg PO DIRECTED 06/25/24 06/25/24 History Allergies Allergy/AdvReac Type Severity Reaction Status Date / Time morphine Allergy Swelling Verified 06/25/24 07:19 Surgical - Exam Vital Signs Temp Pulse Resp BP Pulse Ox 97.9 F 91 18 144/79 100 06/25/24 01:59 06/25/24 01:59 06/25/24 01:59 06/25/24 01:59 06/25/24 01:59 Results - Labs 06/25/24 02:10 06/25/24 02:10 Abnormal Lab Results - Last 24 Hours (Table) 06/25/24 06/25/24 Range/Units 02:10 02:10 WBC 11.2 H (3.8-10.6) k/uL Sodium 136 L (137-145) mmol/L Glucose 125 H (74-99) mg/dL AST 48 H (14-36) U/L Diabetes panel 06/25/24 Range/Units 02:10 Sodium 136 L (137-145) mmol/L Potassium 4.3 (3.5-5.1) mmol/L Chloride 101 (98-107) mmol/L Carbon Dioxide 26 (22-30) mmol/L BUN 13 (7-17) mg/dL Creatinine 0.87 (0.52-1.04) mg/dL Glucose 125 H (74-99) mg/dL Calcium 10.2 (8.4-10.2) mg/dL AST 48 H (14-36) U/L ALT 27 (4-34) U/L Alkaline Phosphatase 51 (38-126) U/L Total Protein 7.3 (6.3-8.2) g/dL Albumin 4.5 (3.5-5.0) g/dL Calcium panel 06/25/24 Range/Units 02:10 Calcium 10.2 (8.4-10.2) mg/dL Albumin 4.5 (3.5-5.0) g/dL Pituitary panel 06/25/24 Range/Units 02:10 Sodium 136 L (137-145) mmol/L Potassium 4.3 (3.5-5.1) mmol/L Chloride 101 (98-107) mmol/L Carbon Dioxide 26 (22-30) mmol/L BUN 13 (7-17) mg/dL Creatinine 0.87 (0.52-1.04) mg/dL Glucose 125 H (74-99) mg/dL Calcium 10.2 (8.4-10.2) mg/dL Adrenal panel 06/25/24 Range/Units 02:10 Sodium 136 L (137-145) mmol/L Potassium 4.3 (3.5-5.1) mmol/L Chloride 101 (98-107) mmol/L Carbon Dioxide 26 (22-30) mmol/L BUN 13 (7-17) mg/dL Creatinine 0.87 (0.52-1.04) mg/dL Glucose 125 H (74-99) mg/dL Calcium 10.2 (8.4-10.2) mg/dL Total Bilirubin 0.8 (0.2-1.3) mg/dL AST 48 H (14-36) U/L ALT 27 (4-34) U/L Alkaline Phosphatase 51 (38-126) U/L Total Protein 7.3 (6.3-8.2) g/dL Albumin 4.5 (3.5-5.0) g/dL
[2024-06-25 10:27] VITALS: RESP 16
[2024-06-25] MEDS: KETOROLAC 15 MG/ML 1 ML VIAL IVP SCH (10:33)
[2024-06-25] MEDS: SCOPOLAMINE 1 MG/72 HR PATCH TRANSDERM STA (10:34)
[2024-06-25] MEDS: CEFEPIME 2 GM in SODIUM CHLORIDE 0.9% 100 ML IVPB STA (10:34)
[2024-06-25] MEDS: SODIUM CHLORIDE 0.9% 1,000 ML IV STA (10:35)
[2024-06-25 11:29] VITALS: BP 97/60; PULSE 73; TEMP 97.7
--- NOTE | 2024-06-25 14:49 | P.DS ---
Providers Date of admission: 06/25/24 06:12 Expected date of discharge: 06/25/24 Attending physician: Desiree Newsome [facility] Course: ASSESSMENT: 1. Epigastric and right upper quadrant abdominal pain due to cholecystitis 2. Acute cholecystitis due to symptomatic gallstones COURSE: The patient is a 44-year-old female admitted with epigastric with right upper quadrant abdominal pain. Patient reported feeling better after admission. She was able to tolerate low-fat diet. Patient opted for outpatient management after she had gotten insurance. Patient advised to follow-up with her primary care provider. Discharge medication including Zofran described. Any recurrent symptoms advised to return to emergency room if needed for urgent surgical intervention. Patient Condition at Discharge: Stable Plan - Discharge Summary Discharge Rx Participant: Yes New Discharge Prescriptions: New Ondansetron Odt [Zofran Odt] 4 mg PO Q8HR PRN #9 tab PRN Reason: Nausea Simethicone 40 mg/0.6 ml Drops [Mylicon Drops] 40 mg PO PCHS PRN #30 ml PRN Reason: Gas Continue Semaglutide Compounded 0.75 mg PO TH@2099 Discharge Medication List Ondansetron Odt [Zofran Odt] 4 mg PO Q8HR PRN #9 tab 06/25/24 [Rx] Semaglutide Compounded 0.75 mg PO TH@2100 06/25/24 [History] Simethicone 40 mg/0.6 ml Drops [Mylicon Drops] 40 mg PO PCHS PRN #30 ml 06/25/24 [Rx] Follow up Appointment(s)/Referral(s): Alejandro Bender MD [Primary Care Provider] - 07/02/24 2:00 pm Desiree Newsome MD [STAFF PHYSICIAN] - As Needed () Patient Instructions/Handouts: Cholecystitis (ED), Gallstones (DC), Low Fat Diet (DC) Activity/Diet/Wound Care/Special Instructions: Notify surgeons office after being seen by primary care provider Discharge Disposition: HOME SELF-CARE
== END 2024-06-25 15:54 | disposition home or self-care (01) | DRG 776 ==
LOC: EC 01:48 → 5NMEDONC 06:12
PROVIDERS: ADMIT Surgery Plastic and Reconstructive Surgery; ATTEND Surgery Plastic and Reconstructive Surgery
DX: F15.91 Other stimulant use, unspecified, in remission (principal); Z53.29 Procedure and treatment not carried out because of patient's decision for other reasons; Z59.71 Insufficient health insurance coverage; Z87.891 Personal history of nicotine dependence; Z79.899 Other long term (current) drug therapy
CPT/HCPCS: 36415; 74176; 80053; 81025; 82150; 83690; 83735; 84484; 85025; 85379; 85610; 85730; 93005; 96361; 96374; 96375; 96376; 99285

== ENCOUNTER 2024-07-23 14:15 | Day surgery (SDC) | payer OTHER ==
[2024-07-22 10:20] VITALS: BMI 29.8
--- NOTE | 2024-07-23 08:27 | P.GSHP ---
History of Present Illness H&P Date: 07/23/24 CHIEF COMPLAINT: Cholecystitis HISTORY OF PRESENT ILLNESS: The patient is a 44-year-old female who presents with history of epigastric including right upper quadrant abdominal pain. She underwent diagnostic studies for her gallbladder. Separately her clinical picture was consistent with cholecystitis. Now she presents for surgical intervention. PAST MEDICAL HISTORY: Please see list PAST SURGICAL HISTORY: Please see list MEDICATIONS: Please see list ALLERGIES: Please see list SOCIAL HISTORY: Please see list FAMILY HISTORY: Please see list REVIEW OF ORGAN SYSTEMS: CONSTITUTIONAL: No reports of fevers or chills. HEENT: Denies any troubles with the vision or hearing. ENDOCRINE: No reports of hypothyroidism. No diabetes. RESPIRATORY: No recent pneumonias. CARDIOVASCULAR: Denies chest pain or palpitations GI: No blood in stools or constipation. MUSCULOSKELETAL: Has occasional joint pain including back pain. NEURO: No seizure disorders or headaches. No recent stroke. PSYCH: No depression or suicidal ideation. GENITOURINARY: No active blood in urine. No urinary hesitancy. HEMATOLOGIC: No personal or family history of DVTs or pulmonary emboli. SKIN: No skin cancer. PHYSICAL EXAM: VITAL SIGNS: Afebrile vital signs stable GENERAL: Well-developed pleasant in no acute distress. HEENT: No scleral icterus. Extraocular movements grossly intact. Moist buccal mucosa. NECK: Supple without lymphadenopathy. CHEST: Unlabored respirations. Equal bilateral excursions. CARDIOVASCULAR: Regular rate regular rhythm rhythm. Distal 2+ pulses. ABDOMEN: Soft, nondistended. Tender along the epigastrium and right upper quadrant. MUSCULOSKELETAL: No clubbing, cyanosis, or edema. NEURO: Cranial nerves II to XII within normal limits. No focal or lateralizing signs. PSYCH: Alert and oriented to person, place and time. SKIN: Well-perfused good skin turgor. ASSESSMENT: 1. Epigastric and right upper quadrant abdominal pain 2. Chronic cholecystitis 3. Symptomatic gallstones. PLAN: 1. Will need a robotic cholecystectomy possible open. Benefits and risks were described. 2. Heparin for DVT prophylaxis 5000 units. 3. Antibiotic prophylaxis. 4. CBC and CMP on day of procedure 5. Non-narcotic pre and post op pain management reviewed. 6. Indocyanine green for biliary imaging. Past Medical History Past Medical History: No Reported History Additional Past Medical History / Comment(s): GALLBLADDER DYSTFUNCTION History of Any Multi-Drug Resistant Organisms: None Reported Past Surgical History: Section Additional Past Surgical History / Comment(s): 3x c-sections, laprascopic cyst removal from ovaries Past Anesthesia/Blood Transfusion Reactions: No Reported Reaction Additional Past Anesthesia/Blood Transfusion Reaction / Comment(s): na Smoking Status: Never smoker - Past Family History Mother Family Medical History: Deep Vein Thrombosis (DVT), Hypertension, Thyroid Disorder Additional Family Medical History / Comment(s): fibromyalgia Father Additional Family Medical History / Comment(s): from [place] 2023 at age 67. Medications and Allergies Home Medications Medication Instructions Recorded Confirmed Type Ibuprofen [Motrin] 600 mg PO Q8HR PRN 07/22/24 07/22/24 History L.acidoph,Paracasei, B.lactis 1 each PO DAILY 07/22/24 07/22/24 History [Probiotic] Milk Thistle 150 mg PO DAILY 07/22/24 07/22/24 History Allergies Allergy/AdvReac Type Severity Reaction Status Date / Time morphine Allergy Swelling, Verified 07/22/24 09:57 ITCHING
[~2024-07-23 14:15] MED LIST: INDOCYANINE GREEN 25 MG VIAL IV STA; SCOPOLAMINE 1 MG/72 HR PATCH TRANSDERM STA
[2024-07-23] MEDS: IV FLUID CONTINUATION 1,000 ML IV ONE ×5 (14:32→20:06)
[2024-07-23] MEDS: ACETAMINOPHEN TAB 500 MG TAB PO PRN (14:58)
[2024-07-23] MEDS: LACTATED RINGERS 1,000 ML BAG IV STA (14:58)
[2024-07-23] MEDS: ONDANSETRON 4 MG/2 ML VIAL IVP PRN (14:58)
[2024-07-23] MEDS: HEPARIN SODIUM,PORCINE 5,000 UNIT/ML 1 ML VIAL SQ PRN (14:59)
[2024-07-23] MEDS: DEXAMETHASONE SOD PHOSPHATE 4 MG/ML 1 ML VIAL IVP STA (14:59)
[2024-07-23 15:02] LABS: Basophils # (A) 0.04 10*3/uL (0.00-0.10); Basophils % (A) 0.5 %; Eosinophils # (A) 0.13 10*3/uL (0.04-0.35); Eosinophils % (A) 1.7 %; HCT 38.1 % (37.2-46.3); Lymphocytes # (A) 1.91 10*3/uL (0.90-5.00); Lymphocytes % (A) 24.3 %; MCH 29.3 pg (27.0-32.0); MCHC 34.1 g/dL (32.0-37.0); Mean Platelet Volume 11.3 fL (9.5-12.2); Monocytes # (A) 0.47 10*3/uL (0.20-1.00); Neutrophils % (A) 67.2 %; Platelet Count 247 10*3/uL (140-440); RBC 4.43 10*6/uL (4.10-5.20); RDW 13.5 % (11.5-14.5); WBC 7.87 10*3/uL (4.50-10.00)
[2024-07-23 15:18] LABS: ALT 23 U/L (4-34); AST 20 U/L (14-36); African American GFR (CKD) >90 (>60 ml/min/1.73 sqM); Albumin 4.3 g/dL (3.5-5.0); Alkaline Phosphatase 53 U/L (38-126); Anion Gap 8 mmol/L; Blood Urea Nitrogen 13 mg/dL (7-17); Calcium 10.1 mg/dL (8.4-10.2); Carbon Dioxide 27 mmol/L (22-30); Chloride 104 mmol/L (98-107); Glucose 98 mg/dL (74-99); Non-African American GFR(CKD) 90 (>60 ml/min/1.73 sqM); Potassium 4.5 mmol/L (3.5-5.1); Sodium 139 mmol/L (137-145); Total Bilirubin 0.9 mg/dL (0.2-1.3)
[2024-07-23] MEDS ORDERED: HYDROmorphone (PF) 1 MG/ML ONE (15:46)
[2024-07-23] MEDS ORDERED: LIDOCAINE 1% INJ 10MG/ML (20 ML MDV) ONE (15:46)
[2024-07-23] MEDS ORDERED: KETOROLAC 15 MG/ML 1 ML VIAL ONE (15:46)
[2024-07-23] MEDS ORDERED: ROCURONIUM 10 MG/ML (5 ML VIAL) IV ONE (15:46)
[2024-07-23] MEDS ORDERED: SUCCINYLCHOLINE CHLORIDE 200 MG/10 ML VIAL IV ONE (15:46)
[2024-07-23] MEDS ORDERED: ePHEDrine 50 MG/ML 1 ML VIAL ONE (15:46)
[2024-07-23] MEDS ORDERED: PROPOFOL 10 MG/ML 20 ML VIAL IV ONE (15:46)
[2024-07-23] MEDS ORDERED: fentaNYL (PF) 50 MCG/ML 2 ML AMP ONE (15:46)
[2024-07-23] MEDS ORDERED: NEOSTIGMINE 1 MG/ML 10 ML VIAL ONE (15:46)
[2024-07-23] MEDS ORDERED: GLYCOPYRROLATE 0.2 MG/ML 2 ML VIAL ONE (15:46)
[2024-07-23] MEDS ORDERED: MIDAZOLAM 2 MG/2 ML VIAL ONE (15:46)
[2024-07-23] MEDS: ceFAZolin 2 GM in DEXTROSE 5% IN WATER 50 ML IVPB PRN (15:51)
[2024-07-23] MEDS: LIDOCAINE 1%-EPI 1:100,000 20 ML VIAL SQ ONE (16:12)
[2024-07-23 16:47] VITALS: RESP 16; TEMP 97
[2024-07-23] MEDS: droPERidol 2.5 MG/ML VIAL IVP ONE (17:06)
[2024-07-23 19:15] VITALS: PULSE 75
[2024-07-23] MEDS: TAMSULOSIN 0.4 MG CAP.ER.24H PO STA (19:36)
[2024-07-23] MEDS: IBUPROFEN 600 MG TAB PO STA (19:44)
[2024-07-23 20:18] VITALS: BP 131/71
--- NOTE | 2024-07-24 11:08 | P.OP ---
Date of Procedure: 07/23/24 Description of Procedure: SURGEON: DESIREE NEWSOME MD PREOPERATIVE DIAGNOSES: 1. Symptomatic gallstones with acute cholecystitis 2. Right upper quadrant abdominal pain 3. NSAID use 4. Generalized anxiety disorder 5. Depressive disorder 6. Posttraumatic stress disorder POSTOPERATIVE DIAGNOSES: 1. Symptomatic gallstones with acute cholecystitis 2. Right upper quadrant abdominal pain 3. NSAID use 4. Generalized anxiety disorder 5. Depressive disorder 6. Posttraumatic stress disorder OPERATION: 1. Robotic-assisted da Gian Xi laparoscopic cholecystectomy, multiport with FIREFLY ESTIMATED BLOOD LOSS: 10 mL. SPECIMENS REMOVED: Gallbladder. COMPLICATIONS: None. OPERATIVE FINDINGS: 1. Pericholecystic adhesions consistent with chronic cholecystitis INDICATIONS: The patient is a 44-year-old female who presents with history of acute cholecystitis due to symptomatic gallstones. Robotic assisted laparoscopic approach was described. Benefits and risks of the procedure including but not limited to bleeding, infection, injury to the biliary tree was described. Informed consent was obtained. DESCRIPTION OF PROCEDURE: Patient was brought to the operating room, placed in supine position. After general induction, the abdomen had been prepped and draped in standard sterile fashion. The robotic da Gina XI system was primed. After a timeout protocol was performed, the patient had been prepped and draped in standard sterile fashion. The patient was injected with indocyanine green. A 5 mm 0 degrees laparoscopic trocar entry was performed along the left upper quadrant. The abdomen insufflated to 15 mmHg pressure which was tolerated well. Diagnostic laparoscopy demonstrated no injury to bowel viscera or mesentery. The liver surface was unremarkable. Next, two 8 mm robotic ports were placed along the right upper abdomen. The camera 8-mm port was maintained along the epigastrium. Another 8 mm port was placed along the left upper abdominal wall after exchanging the 5 mm port. Please note that the ports were placed at least 10 to 15 cm away from the target anatomy of the gallbladder. The robot was docked along the left lateral abdomen. The patient was repositioned in reverse Trendelenburg position. Using a grasper for arm 1, a grasper for arm 4, including hook cautery for arm 3, the robotic system was docked and primed as described. Instruments were interchanged by the assistant clinical director including hook cautery, Bovie cautery and clip appliers. I had sat at the console. Dome down technique was performed dividing the gallbladder from the avascular plane of the hepatic fossa. Using hook cautery, the gallbladder was dissected free from the liver bed. Next attention was brought to the infundibulum and cystic structures. The infundibulum and cystic duct were dissected free from surrounding tissues. The cystic duct was isolated. FIREFLY was used to identify the cystic artery and cystic structures. A critical view of safety was obtained. Large PLASTIC clips were used throughout the entire case. Using a clip information technology officer, 3 clips were placed at the junction of the infundibulum and cystic duct. The cystic duct was divided between clips. Next, the cystic artery was similarly clipped and cauterized. Electro-Bovie cautery was used to remove the gallbladder from the hepatic fossa. Hemostasis was checked and found to be adequate. The robot was undocked. I re-scrubbed into the case. Using a 10 mm Endo Catch bag via the epigastric incision, the specimen was removed from the abdominal cavity. All pneumoperitoneum instruments were evacuated from the abdominal cavity. The incisions were reapproximated using 4-0 Monocryl in an interrupted subcuticular fashion. Fascial defects were less than 8 mm in size. Please note along the trocar sites, local anesthetic was placed as a field block prior to insertion of all instruments. Liquid glue was applied to the skin. At the end of the procedure needle, sponge, and instrument count had been verified correct by the surgical technologist. The patient was transferred to postanesthesia care unit in stable condition. Intraoperative films were shared with the patient's family. Plan - Discharge Summary Discharge Rx Participant: No New Discharge Prescriptions: New Simethicone [Gas-X] 125 mg PO AC-TID PRN #20 capsule PRN Reason: Pain Ibuprofen [Motrin] 600 mg PO Q8HR PRN #30 tab PRN Reason: Pain Acetaminophen Tab [Tylenol Tab] 1,000 mg PO Q6HR PRN #30 tablet PRN Reason: Pain Continue Milk Thistle 150 mg PO DAILY L.acidoph,Paracasei, B.lactis [Probiotic] 1 each PO DAILY Discontinued Ibuprofen [Motrin] 600 mg PO Q8HR PRN PRN Reason: Pain Discharge Medication List L.acidoph,Paracasei, B.lactis [Probiotic] 1 each PO DAILY 07/22/24 [History] Milk Thistle 150 mg PO DAILY 07/22/24 [History] Acetaminophen Tab [Tylenol Tab] 1,000 mg PO Q6HR PRN #30 tablet 07/23/24 [Rx] Ibuprofen [Motrin] 600 mg PO Q8HR PRN #30 tab 07/23/24 [Rx] Simethicone [Gas-X] 125 mg PO AC-TID PRN #20 capsule 07/23/24 [Rx] Follow up Appointment(s)/Referral(s): Desiree Newsome MD [STAFF PHYSICIAN] - 07/28/24 7:10 pm ( TELEHEALTH - DR WILL CALL YOU BETWEEN 9 am to 8 pm) Patient Instructions/Handouts: *Surgery [facility] - (Anesthesia) Discharge Instructions Outpatient Surgery, Low Fat Diet (DC), Laparoscopic Cholecystectomy (DC) Activity/Diet/Wound Care/Special Instructions: TELEHEALTH - WILL CALL YOU BETWEEN 9 am to 8 pm NO LONG DRIVES OR AIRPLANE RIDES OVER 60 MINUTES FOR THE NEXT 2, 08/06/24 WEEKS DUE TO HIGH RISK OF PULMONARY EMBOLISM/DVTs May drive in 72 hrs, 07/26/24 Recommend low-fat diet for the next 2 days. No lifting over 10 pounds in 2 weeks until 08/06/24 May shower. No bath tub soaks for two weeks until 08/06/24 Diet as tolerated. Use Tylenol, simethicone and ibuprofen or Aleve scheduled for the next 24-48 hours for best pain relief. Use ice along incisions for today to prevent swelling. Discharge Disposition: HOME SELF-CARE
== END 2024-07-23 20:47 | disposition home or self-care (01) ==
LOC: OR 14:15
PROVIDERS: ATTEND Surgery Plastic and Reconstructive Surgery
DX: K80.12 Calculus of gallbladder with acute and chronic cholecystitis without obstruction (principal); F41.1 Generalized anxiety disorder; F32.A Depression, unspecified; F43.10 Post-traumatic stress disorder, unspecified; Z88.5 Allergy status to narcotic agent
CPT/HCPCS: 47562; 81025; 88304; 80053; 85025; J2250; J0330; J1644; J1100; J2710; J0690; J2405; J2003; J3010; J1171; J1885; J2704; J1596; J1790